=== PATIENT | female | born 1950 | race Caucasian/White ===

== ENCOUNTER → 2018-06-23 | Outpatient (CLI) | payer MEDICARE, OTHER ==
[~2018-06-23] MED LIST: DAR75 PO; HYDR-653 PO; KET10 PO; LANS15CA38 PO; LANS30SU PO; LISI20TA29 PO; OXYC-865 PO; PANT40TA65 PO
== END ==
LOC: RESP 10:26
PROVIDERS: ATTEND Physician Assistant
DX: R06.02 Shortness of breath (principal)
CPT/HCPCS: 94060

== ENCOUNTER → 2018-08-19 | Outpatient (CLI) | payer MEDICARE, OTHER | LOC: RESP 20:14 | PROVIDERS: ATTEND Physician Assistant | DX: G47.33 Obstructive sleep apnea (adult) (pediatric) (principal); G47.61 Periodic limb movement disorder; G47.36 Sleep related hypoventilation in conditions classified elsewhere ==